=== PATIENT | male | born 2005 | race Caucasian/White ===

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

== ENCOUNTER 2023-02-01 21:19 | Outpatient (REF) | payer BC, SELFPAY | END 2023-02-01 21:20 | disposition home or self-care (01) | LOC: LBN 21:19 | PROVIDERS: PCP Nurse Practitioner Pediatrics; Visit Provider Physician Assistant | DX: J02.9 Acute pharyngitis, unspecified (principal) | CPT/HCPCS: 87070 ==